=== PATIENT | male | born 1950 | race African-American/Black ===

== ENCOUNTER 2016-11-22 04:32 | Emergency (ER) | payer SELFPAY ==
[~2016-11-22] VITALS: Ht 177.8 cm; Wt 72.0 kg
[2016-11-22] MEDS ORDERED: IPRATROPIUM BROMIDE (0.02%) 0.5MG/2.5ML NEB HHN STA (05:06)
[2016-11-22] MEDS ORDERED: METHYLPREDNISOLONE SOD SUCC 125 MG/2 ML VIAL IV STA (05:06)
[2016-11-22] MEDS ORDERED: ALBUTEROL (0.083%) 2.5MG/3ML NEB HHN STA (05:06)
[2016-11-22 05:10] VITALS: BP 135/90
== END 2016-11-22 06:01 | disposition home or self-care (01) ==
LOC: ER 04:37
DX: J44.1 Chronic obstructive pulmonary disease with (acute) exacerbation (principal); Z87.891 Personal history of nicotine dependence
CPT/HCPCS: 94640; 96374; 99284; J2930; J7611; Z7610

== ENCOUNTER 2019-09-02 00:59 | Emergency (ER) | payer BC ==
[~2019-09-02] VITALS: Ht 172.7 cm; Wt 80.0 kg
[2019-09-02] MEDS ORDERED: METHYLPREDNISOLONE SOD SUCC 125 MG/2 ML VIAL IV STA (01:04)
[2019-09-02] MEDS ORDERED: IPRATROPIUM BROMIDE (0.02%) 0.5MG/2.5ML NEB HHN STA (01:04)
[2019-09-02] MEDS ORDERED: MAGNESIUM 2 G PREMIX 50 ML IV STA (01:04)
[2019-09-02] MEDS ORDERED: ALBUTEROL (0.083%) 2.5MG/3ML NEB HHN STA (01:04)
[2019-09-02 03:13] LABS: HEMATOCRIT. 42.2 % (42.0-52.0); HEMOGLOBIN. 13.8 g/dL (14.0-18.0); MEAN CORPUSCULAR HEMOGLOBIN 27.2 pg (28.0-32.0); PLATELET 171 x1000/uL (130-400); RED BLOOD CELL COUNT 5.08 mill/uL (4.7-6.1)
[2019-09-02 03:19] LABS: CHLORIDE 103 mEq/L (98-107)
[2019-09-02 03:50] LABS: PLATELET ESTIMATE NORMAL
[2019-09-02 08:00] VITALS: BP 127/68
== END 2019-09-02 08:53 | disposition left against medical advice (07) ==
LOC: ER 00:59 → EDBEDREQTM 03:15 → EDBEDREQ 03:15 → CANRESERV 08:00 → ENRESERV 08:00 → CANBEDREQ 08:38 → ER 08:53
DX: J44.1 Chronic obstructive pulmonary disease with (acute) exacerbation (principal); I10 Essential (primary) hypertension
CPT/HCPCS: 36415; 71045; 80053; 83880; 84484; 85025; 93005; 94644; 94660; 96365; 96366; 96375; 99285; J2930; J3475; J7611

== ENCOUNTER 2019-09-04 15:41 | Emergency (ER) | payer BC, MEDICARE ==
[~2019-09-04] VITALS: Ht 170.2 cm; Wt 70.0 kg
[2019-09-04] MEDS ORDERED: ALBUTEROL (0.083%) 2.5MG/3ML NEB HHN STA (15:45)
[2019-09-04] MEDS ORDERED: IPRATROPIUM BROMIDE (0.02%) 0.5MG/2.5ML NEB HHN STA (15:45)
[2019-09-04] MEDS ORDERED: METHYLPREDNISOLONE SOD SUCC 125 MG/2 ML VIAL IV STA (15:45)
[2019-09-04] MEDS ORDERED: MAGNESIUM 2 G PREMIX 50 ML IV ONE (15:45)
[2019-09-04 16:46] LABS: BASOPHILS % 0.9 % (0.0-2.0); EOSINOPHILS % 5.6 % (0.0-5.0); HEMATOCRIT. 44.7 % (42.0-52.0); HEMOGLOBIN. 14.5 g/dL (14.0-18.0); LYMPHOCYTES % 26.5 % (20.0-50.0); MEAN CORPUSCULAR HEMOGLOBIN 27.1 pg (28.0-32.0); MEAN CORPUSCULAR VOLUME 83.9 fL (80.0-94.0); MEAN PLATELET VOLUME 8.7 fl (7.4-10.4); MONOCYTES % 14.3 % (2.0-8.0); NEUTROPHILS % 52.7 % (40.0-76.0); PLATELET 103 x1000/uL (130-400); RED BLOOD CELL COUNT 5.33 mill/uL (4.7-6.1)
[2019-09-04 16:51] LABS: CHLORIDE 103 mEq/L (98-107)
[2019-09-04] MEDS ORDERED: GUAIFENESIN 200MG/10ML SUGAR FREE UDC PO PRN (19:30)
[2019-09-04] MEDS ORDERED: CLONIDINE 0.1MG TABLET PO PRN (19:30)
[2019-09-04] MEDS ORDERED: ONDANSETRON HCL 4MG/2ML INJ IV PRN (19:30)
[2019-09-04] MEDS ORDERED: DIPHENHYDRAMINE 50MG/ML VIAL IV PRN (19:30)
[2019-09-04] MEDS ORDERED: IPRATROPIUM/ALBUTEROL 0.5-3(2.5)MG/3ML NEB HHN PRN (19:30)
[2019-09-04] MEDS ORDERED: ACETAMINOPHEN 325MG TABLET PO PRN (19:30)
[2019-09-04 19:41] LABS: PHOSPHORUS 3.5 mg/dL (2.5-4.9)
[2019-09-05 05:31] LABS: BASOPHILS % 0.2 % (0.0-2.0); HEMATOCRIT. 42.6 % (42.0-52.0); HEMOGLOBIN. 13.7 g/dL (14.0-18.0); LYMPHOCYTES % 9.4 % (20.0-50.0); MEAN CORPUSCULAR HEMOGLOBIN 26.7 pg (28.0-32.0); MEAN CORPUSCULAR VOLUME 83.2 fL (80.0-94.0); MONOCYTES % 4.7 % (2.0-8.0); NEUTROPHILS % 85.7 % (40.0-76.0); PLATELET 118 x1000/uL (130-400); RED BLOOD CELL COUNT 5.11 mill/uL (4.7-6.1)
[2019-09-05 05:34] LABS: CHLORIDE 104 mEq/L (98-107)
[2019-09-05 05:43] LABS: LDL CHOLESTEROL 124 mg/dL (5-100)
[2019-09-05 05:44] LABS: HDL CHOLESTEROL 67 mg/dL (40-59)
[2019-09-05 11:03] VITALS: BP 134/66
[2019-09-06] MEDS ORDERED: ENOXAPARIN 40MG/0.4ML SYR SUBCUT SCH (09:00)
== END 2019-09-05 11:07 | disposition left against medical advice (07) ==
LOC: ER 15:41 → EDBEDREQ 19:06 → ER 09-05 11:07 → CANBEDREQ 09-05 11:10
DX: J44.1 Chronic obstructive pulmonary disease with (acute) exacerbation (principal); I10 Essential (primary) hypertension; J45.909 Unspecified asthma, uncomplicated
CPT/HCPCS: 36415; 71045; 80053; 80061; 82962; 83735; 83880; 84100; 84443; 84484; 85025; 93005; 94640; 94644; 96365; 96366; 96375; 99285; J2930; J3475; J7611; J7620

== ENCOUNTER 2019-11-17 08:57 | Emergency (ER) | payer BC ==
[~2019-11-17] VITALS: Ht 182.9 cm; Wt 82.0 kg
[2019-11-17] MEDS ORDERED: NITROGLYCERIN 50MG PREMIX 250 ML IV ONE (09:15)
[2019-11-17] MEDS ORDERED: FUROSEMIDE 40MG/4ML VIAL IVP ONE (09:15)
[2019-11-17] MEDS ORDERED: ALBUTEROL 6.7GM HFA INHALER ORI ONE ×3 (09:15)
[2019-11-17] MEDS ORDERED: MAGNESIUM 2 G PREMIX 50 ML IV ONE (09:30)
[2019-11-17] MEDS ORDERED: METHYLPREDNISOLONE SOD SUCC 125 MG/2 ML VIAL IV ONE (09:30)
[2019-11-17] MEDS ORDERED: LEVOFLOXACIN 500MG PREMIX 100 ML IV ONE (09:30)
[2019-11-17 10:41] LABS: BASOPHILS % 1.2 % (0.0-2.0); EOSINOPHILS % 8.2 % (0.0-5.0); HEMATOCRIT. 43.8 % (42.0-52.0); HEMOGLOBIN. 14.3 g/dL (14.0-18.0); LYMPHOCYTES % 36.5 % (20.0-50.0); MEAN CORPUSCULAR HEMOGLOBIN 27.2 pg (28.0-32.0); MEAN CORPUSCULAR VOLUME 83.6 fL (80.0-94.0); MONOCYTES % 12.5 % (2.0-8.0); NEUTROPHILS % 41.6 % (40.0-76.0); RED BLOOD CELL COUNT 5.24 mill/uL (4.7-6.1); RED CELL DISTRIBUTION WIDTH 16.3 % (11.6-14.6)
[2019-11-17 10:51] LABS: D-DIMER 2.75 mg/L FEU (<0.50); PROTHROMBIN TIME 11.1 sec (9.6-11.0)
[2019-11-17 10:52] LABS: CHLORIDE 103 mEq/L (98-107)
[2019-11-17 10:58] LABS: C REACTIVE PROTEIN QUANT 5.3 mg/L (0.0-3.0); ETHANOL BLOOD < 10 mg/dL
[2019-11-17 11:07] LABS: CLARITY URINE CLOUDY (CLEAR); COLOR URINE YELLOW (YELLOW); KETONES URINE NEGATIVE (NEGATIVE); LEUKOCYTE ESTERASE URINE 3+ (NEGATIVE); NITRITE URINE POSITIVE (NEGATIVE); OCCULT BLOOD URINE NEGATIVE (NEGATIVE); PROTEIN URINE NEGATIVE (NEGATIVE); UROBILINOGEN URINE 0.2 E.U./dL (0.2-1.0)
[2019-11-17 11:27] LABS: *AMPHETAMINES SCREEN URINE NEGATIVE (NEGATIVE); *BARBITURATES SCREEN URINE NEGATIVE (NEGATIVE); *BENZODIAZEPINES SCREEN URINE NEGATIVE (NEGATIVE); *COCAINE SCREEN URINE PRESUMTIVE POSITIVE (NEGATIVE); CANNABINOID URINE SCREEN NEGATIVE (NEGATIVE); METHADONE URINE SCREEN NEGATIVE (NEGATIVE); OPIATES URINE SCREEN NEGATIVE (NEGATIVE); PHENCYCLIDINE URINE SCREEN NEGATIVE (NEGATIVE)
[2019-11-17] MEDS ORDERED: BENZONATATE 100MG CAPSULE PO PRN (12:00)
[2019-11-17] MEDS ORDERED: ASCORBIC ACID 500 MG TABLET PO SCH (12:00)
[2019-11-17] MEDS ORDERED: ALBUTEROL 6.7GM HFA INHALER ORI PRN ×2 (12:00→16:45)
[2019-11-17] MEDS ORDERED: METHYLPREDNISOLONE SOD SUCC 40 MG/ML VIAL IV SCH (16:30)
[2019-11-17] MEDS ORDERED: THIAMINE HCL 100MG TABLET PO SCH (17:00)
[2019-11-17 17:30] LABS: BG BASE EXCESS -0.6 mmol/L (-2.0-2.0); BG CARBOXYHEMOGLOBIN 0.5 % (0.5-1.5); BG DEOXYHEMOGLOBIN 1.3 % (0.0-5.0); BG FRACTION INSPIRED OXYGEN 28; BG HCO3 ACT 24.8 mmol/L (22.0-26.0); BG METHEMOGLOBIN 0.1 % (0.0-1.5); BG OXYGEN SATURATION 98.7 % (92.0-98.5); BG OXYHEMOGLOBIN 98.1 % (94.0-97.0); BG PCO2 43.1 mmHg (35.0-45.0); BG PH 7.377 (7.350-7.450); BG PO2 138.3 mmHg (75.0-100.0); BG SAMPLE SITE RIGHT RADIAL; BG TOTAL HEMOGLOBIN 14.5 g/dL (12.0-18.0); BG VENT MODE NASAL CANNULA
[2019-11-17] MEDS ORDERED: CEFTRIAXONE 1 G PREMIX 50 ML IV NR (17:56)
[2019-11-17 18:27] VITALS: BP 146/74
[2019-11-18] MEDS ORDERED: ZINC SULFATE 220 MG ( 50 ) CAPSULE PO SCH (09:00)
[2019-11-18] MEDS ORDERED: AZITHROMYCIN 500 MG TABLET PO SCH (09:00)
[2019-11-18] MEDS ORDERED: CEFTRIAXONE 1 G PREMIX 50 ML IV SCH (18:00)
== END 2019-11-17 18:35 | disposition left against medical advice (07) ==
LOC: ER 09:37 → EDBEDREQSVC 10:17 → EDBEDREQ 10:17 → ER 18:35 → ENRESERV 18:56 → CANRESERV 18:56 → CANBEDREQ 20:05
DX: I16.9 Hypertensive crisis, unspecified (principal); J44.1 Chronic obstructive pulmonary disease with (acute) exacerbation; I50.9 Heart failure, unspecified
CPT/HCPCS: 36415; 36600; 71045; 80053; 80305; 80320; 81003; 82375; 82728; 82805; 83605; 83615; 83690; 83880; 84145; 84484; 85025; 85379; 85610; 86140; 87040; 87077; 87086; 87186; 93005; 96374; 96375; 99291; J1940; J1956; J2930; J3475; G0480